=== PATIENT | male | born 1960 | race Caucasian/White ===

== ENCOUNTER → 2021-10-14 16:10 | Outpatient (REF) | payer OTHER, SELFPAY | LOC: ANHLAB 16:10 | PROVIDERS: Visit Provider Nurse Practitioner | DX: C44.519 Basal cell carcinoma of skin of other part of trunk (principal) | CPT/HCPCS: 88305 ==

== ENCOUNTER → 2021-12-09 07:46 | Outpatient (REF) | payer OTHER, SELFPAY | LOC: ANHLAB 07:46 | PROVIDERS: Visit Provider Nurse Practitioner | DX: C44.519 Basal cell carcinoma of skin of other part of trunk (principal) | CPT/HCPCS: 88305; 88331 ==